=== PATIENT | female | born 1985 | race Caucasian/White ===

== ENCOUNTER 2023-05-02 21:38 | Inpatient (IN) | payer OTHER ==
[~2023-05-02] VITALS: Ht 160 cm; Wt 75.3 kg
[2023-05-02 22:06] VITALS: O2SAT 98
[2023-05-02 22:35] LABS: BASOPHILS % 0.7 % (0.0-2.0); HEMATOCRIT. 40.8 % (36.0-48.0); HEMOGLOBIN. 13.9 g/dL (12.0-16.0); LYMPHOCYTES % 28.8 % (20.0-50.0); MEAN CORPUSCULAR HEMOGLOBIN 27.5 pg (28.0-32.0); MEAN CORPUSCULAR VOLUME 80.9 fL (81.0-99.0); MEAN PLATELET VOLUME 9.5 fl (7.4-10.4); MONOCYTES % 5.3 % (2.0-8.0); NEUTROPHILS % 62.2 % (40.0-76.0); PLATELET 284 x1000/uL (130-400); RED BLOOD CELL COUNT 5.04 mill/uL (4.2-5.4); RED CELL DISTRIBUTION WIDTH 13.1 % (11.6-14.6)
[2023-05-02 22:43] LABS: CHLORIDE 106 mEq/L (98-107)
[2023-05-03] VITALS (13 sets, daily range): BP systolic 104–139; BP diastolic 63–91; PULSE 68–75; RESP 16–20; TEMP 98.1–98.9
[2023-05-03 01:50] LABS: CLARITY URINE TURBID (CLEAR); COLOR URINE RED (YELLOW); KETONES URINE NEGATIVE (NEGATIVE); LEUKOCYTE ESTERASE URINE 2+ (NEGATIVE); NITRITE URINE NEGATIVE (NEGATIVE); OCCULT BLOOD URINE 3+ (NEGATIVE); PROTEIN URINE 2+ (NEGATIVE); SPECIFIC GRAVITY URINE 1.021 (1.005-1.030); UROBILINOGEN URINE 0.2 E.U./dL (0.2-1.0)
[2023-05-03] MEDS ORDERED: CEFTRIAXONE 1GM PREMIX 50 ML IV ONE (07:30)
[2023-05-03] MEDS ORDERED: KETOROLAC 30MG/ML VIAL IV ONE (07:30)
[2023-05-03] MEDS ORDERED: KETOROLAC 30MG/ML VIAL IV NR (10:00)
[2023-05-03] MEDS: CEFTRIAXONE 1GM PREMIX 50 ML IV NR (10:08)
[2023-05-03 10:30] LABS: PROTHROMBIN TIME 10.9 sec (9.6-11.0)
[2023-05-03] MEDS ORDERED: IOHEXOL-300 50 ML BOTTLE IV ONE (11:09)
[2023-05-03] MEDS ORDERED: LIDOCAINE HCL 1% 10 MG/ML 10ML VIAL ONE (11:09)
[2023-05-03] MEDS ORDERED: FENTANYL CITRATE/PF 50MCG/ML 2ML VIAL ONE (11:42)
[2023-05-03] MEDS ORDERED: FENTANYL CITRATE/PF 50MCG/ML 2ML VIAL IV ONE (12:00)
[2023-05-03] MEDS ORDERED: DEXTROSE 50% WATER 50ML SYRINGE IV PRN (19:45)
[2023-05-03] MEDS ORDERED: ACETAMINOPHEN 325MG TABLET PO PRN (19:45)
[2023-05-03] MEDS ORDERED: CLONIDINE 0.1MG TABLET PO PRN (19:45)
[2023-05-03] MEDS ORDERED: POTASSIUM CHLORIDE 20MEQ TABLET SR PO NR (20:00)
[2023-05-03] MEDS ORDERED: ENOXAPARIN 40MG/0.4ML SYR SUBCUT SCH (20:00)
[2023-05-03] MEDS ORDERED: NALOXONE HCL 0.4MG/ML VIAL IV PRN (20:00)
[2023-05-03] MEDS: HYDROCODONE/ACETAMINOPHEN 5/325MG TABLET PO PRN (20:14)
[2023-05-03] MEDS: BLOOD SUGAR DIAGNOSTIC STRIP TEST SCH (20:16)
[2023-05-03] MEDS: INSULIN LISPRO 100 UNITS/ML SUBCUT SCH (20:16)
[2023-05-03] MEDS ORDERED: ACET-2708 PO (21:46)
[2023-05-04] VITALS: BP 98/54; PULSE 63; RESP 18; TEMP 98.2
[2023-05-04 04:00] VITALS: BP 101/62; PULSE 65; RESP 20; TEMP 97.8
[2023-05-04 06:31] LABS: HEMOGLOBIN 14.1 g/dL (12.0-16.0); MEAN CORPUSCULAR HEMOGLOBIN 28.2 pg (28.0-32.0); MEAN CORPUSCULAR VOLUME 81.9 fL (81.0-99.0); PLATELET 263 x1000/uL (130-400); RED CELL DISTRIBUTION WIDTH 13.2 % (11.6-14.6)
[2023-05-04 06:37] LABS: CHLORIDE 111 mEq/L (98-107)
[2023-05-04] MEDS: BLOOD SUGAR DIAGNOSTIC STRIP TEST SCH ×2 (06:39→12:10)
[2023-05-04 06:52] LABS: HDL CHOLESTEROL 39 mg/dL (40-59); LDL CHOLESTEROL 97 mg/dL (5-100)
[2023-05-04] MEDS ORDERED: CEFTRIAXONE 1,000 MG in DEXTROSE 5% WATER 50 ML IV SCH (07:00)
[2023-05-04] MEDS: INSULIN LISPRO 100 UNITS/ML SUBCUT SCH ×2 (07:40→12:56)
[2023-05-04 08:00] VITALS: BP 121/63; PULSE 76; RESP 20; TEMP 97.9
[2023-05-04] MEDS ORDERED: ENOXAPARIN 40MG/0.4ML SYR SUBCUT SCH (09:00)
[2023-05-04 10:21] VITALS: PULSE 71
[2023-05-04] MEDS: HYDROCODONE/ACETAMINOPHEN 5/325MG TABLET PO PRN (10:21)
[2023-05-04 12:00] VITALS: BP 111/75; RESP 20; TEMP 98
[2023-05-04] MEDS ORDERED: CIPR-263 MT (12:44)
[2023-05-04] MEDS ORDERED: METF-414 MT (14:57)
== END 2023-05-04 18:05 | disposition home or self-care (01) | DRG 463 ==
LOC: ER 21:38 → 8WST 05-03 09:15 → EDBEDREQ 05-03 09:17 → EDBEDREQSVC 05-03 09:17 → EDBEDREQTM 05-03 09:17
PROVIDERS: ADMIT Internal Medicine; ATTEND Internal Medicine
PROC: 0T9430Z Drainage of Left Kidney Pelvis with Drainage Device, Percutaneous Approach (ICD-10-PCS; principal; 2023-05-03)
DX: N13.6 Pyonephrosis (principal); E11.9 Type 2 diabetes mellitus without complications; N23 Unspecified renal colic; E78.00 Pure hypercholesterolemia, unspecified; I10 Essential (primary) hypertension; N20.0 Calculus of kidney; Z79.4 Long term (current) use of insulin
CPT/HCPCS: 36415; 50432; 74176; 80048; 80053; 80061; 81003; 82962; 83036; 85025; 85027; 99152; 99153; 99285; C1729; C1769; J0696; J1650; J1815; J1885; J3010; J3490; J7060; Q9967; G0500

== ENCOUNTER 2023-05-28 15:08 | Emergency (ER) | payer OTHER ==
[~2023-05-28] VITALS: Ht 162.6 cm; Wt 77.0 kg
[~2023-05-28 15:08] MED LIST: ACET-2708 PO; CIPR-263 MT; METF-414 MT
[2023-05-28 15:29] VITALS: O2SAT 100
[2023-05-28] MEDS ORDERED: ACETAMINOPHEN 325MG TABLET PO ONE (16:30)
[2023-05-28 16:51] LABS: BASOPHILS % 0.5 % (0.0-2.0); EOSINOPHILS % 3.6 % (0.0-5.0); HEMATOCRIT. 41.7 % (36.0-48.0); HEMOGLOBIN. 14.2 g/dL (12.0-16.0); LYMPHOCYTES % 27.7 % (20.0-50.0); MEAN CORPUSCULAR HEMOGLOBIN 27.5 pg (28.0-32.0); MEAN CORPUSCULAR HGB CONC 34.1 g/dL (31.0-37.0); MEAN CORPUSCULAR VOLUME 80.7 fL (81.0-99.0); MONOCYTES % 4.8 % (2.0-8.0); NEUTROPHILS % 63.4 % (40.0-76.0); PLATELET 269 x1000/uL (130-400); RED BLOOD CELL COUNT 5.16 mill/uL (4.2-5.4); WHITE BLOOD COUNT 11.8 x1000/uL (4.5-11.0)
[2023-05-28 16:56] LABS: CHLORIDE 107 mEq/L (98-107); INDEX HEMOLYSI 1 (1-3); INDEX ICTERIC 1 (1-4); INDEX LIPEMIC 1 (1-3); POTASSIUM 3.8 mEq/L (3.5-5.1); SODIUM 137 mEq/L (136-145)
[2023-05-28 16:58] LABS: HCG SCREEN NEGATIVE
[2023-05-28 17:06] LABS: ALANINE AMINOTRANSFERASE 36 IU/L (13-61); ASPARTATE AMINOTRANSFERASE 14 IU/L (15-37); BILIRUBIN TOTAL 0.3 mg/dL (0.1-1.0); CALCIUM 9.1 mg/dL (8.5-10.1); CARBON DIOXIDE 26 mEq/L (21-32); CREATININE 0.6 mg/dL (0.6-1.3); GLUCOSE 110 mg/dL (70-105); PROTEIN TOTAL 7.9 g/dL (6.0-8.3); UREA NITROGEN BLOOD 4 mg/dL (7-21)
[2023-05-28 17:23] LABS: CLARITY URINE TURBID (CLEAR); COLOR URINE YELLOW (YELLOW); GLUCOSE URINE NEGATIVE (NEGATIVE); KETONES URINE NEGATIVE (NEGATIVE); LEUKOCYTE ESTERASE URINE 3+ (NEGATIVE); NITRITE URINE POSITIVE (NEGATIVE); OCCULT BLOOD URINE 2+ (NEGATIVE); PROTEIN URINE 3+ (NEGATIVE); SPECIFIC GRAVITY URINE 1.012 (1.005-1.030); UROBILINOGEN URINE 0.2 E.U./dL (0.2-1.0)
[2023-05-28] MEDS ORDERED: PIPERACILLIN/TAZOBACTAM 3.375GM/50ML PREMIX IV ONE (17:45)
[2023-05-28] MEDS ORDERED: PIPERACILLIN/TAZ 3.375G PREMIX 50 ML IV NR (18:00)
[2023-05-28 18:18] LABS: BACTERIA URINE 3+; SQUAMOUS EPITHELIAL CELL URINE 1+ /lpf (RARE/1+)
[2023-05-28 18:21] LABS: WBC URINE 50-100 /hpf (0-2); YEAST URINE FEW
[2023-05-28 22:56] VITALS: BP 150/92; PULSE 84; RESP 20; TEMP 98.3
== END 2023-05-28 23:32 | disposition short-term general hospital (02) ==
LOC: ER 15:08 → CANBEDREQ 20:28 → ER 23:32
DX: M54.9 Dorsalgia, unspecified (principal); E11.9 Type 2 diabetes mellitus without complications; E78.00 Pure hypercholesterolemia, unspecified; I10 Essential (primary) hypertension; Z87.440 Personal history of urinary (tract) infections; Z98.890 Other specified postprocedural states
CPT/HCPCS: 80053; 81003; 84703; 83605; 83690; 85025; 87040; 87086; 87186; 87077; 36415; 74176; 96365; 99285; J2543; Z7610; C1893

== ENCOUNTER 2023-07-21 22:15 | Emergency (ER) | payer OTHER ==
[~2023-07-21] VITALS: Ht 165.1 cm; Wt 73.0 kg
[2023-07-21 23:29] VITALS: O2SAT 100
[2023-07-21 23:42] LABS: BASOPHILS % 0.8 % (0.0-2.0); DIFFERENTIAL COMMENT 0; EOSINOPHILS % 2.3 % (0.0-5.0); HEMATOCRIT. 40.4 % (36.0-48.0); HEMOGLOBIN. 13.6 g/dL (12.0-16.0); LYMPHOCYTES % 28.1 % (20.0-50.0); MEAN CORPUSCULAR HEMOGLOBIN 26.8 pg (28.0-32.0); MEAN CORPUSCULAR HGB CONC 33.7 g/dL (31.0-37.0); MEAN CORPUSCULAR VOLUME 79.5 fL (81.0-99.0); MEAN PLATELET VOLUME 9.9 fl (7.4-10.4); MONOCYTES % 4.6 % (2.0-8.0); NEUTROPHILS % 64.2 % (40.0-76.0); PLATELET 308 x1000/uL (130-400); RED BLOOD CELL COUNT 5.08 mill/uL (4.2-5.4); RED CELL DISTRIBUTION WIDTH 12.8 % (11.6-14.6); WHITE BLOOD COUNT 12.7 x1000/uL (4.5-11.0)
[2023-07-21 23:51] LABS: CHLORIDE 105 mEq/L (98-107); INDEX HEMOLYSI 2 (1-3); INDEX ICTERIC 1 (1-4); INDEX LIPEMIC 1 (1-3); POTASSIUM 3.6 mEq/L (3.5-5.1); SODIUM 135 mEq/L (136-145)
[2023-07-22 00:13] LABS: ALANINE AMINOTRANSFERASE 35 IU/L (13-61); ALBUMIN 3.6 g/dL (3.4-5.0); ASPARTATE AMINOTRANSFERASE 15 IU/L (15-37); BILIRUBIN TOTAL 0.2 mg/dL (0.1-1.0); CALCIUM 8.3 mg/dL (8.5-10.1); CARBON DIOXIDE 27 mEq/L (21-32); CREATININE 0.8 mg/dL (0.6-1.3); GLUCOSE 182 mg/dL (70-105); PROTEIN TOTAL 7.6 g/dL (6.0-8.3); UREA NITROGEN BLOOD 15 mg/dL (7-21)
[2023-07-22 01:14] LABS: CLARITY URINE CLOUDY (CLEAR); COLOR URINE YELLOW (YELLOW); GLUCOSE URINE 1+ (NEGATIVE); KETONES URINE NEGATIVE (NEGATIVE); LEUKOCYTE ESTERASE URINE 2+ (NEGATIVE); NITRITE URINE POSITIVE (NEGATIVE); OCCULT BLOOD URINE 2+ (NEGATIVE); PROTEIN URINE 2+ (NEGATIVE); SPECIFIC GRAVITY URINE 1.013 (1.005-1.030); UROBILINOGEN URINE 0.2 E.U./dL (0.2-1.0)
[2023-07-22] MEDS ORDERED: KETOROLAC 15MG/ML VIAL IV NR (01:45)
[2023-07-22] MEDS ORDERED: CEPHALEXIN 250MG CAPSULE PO NR (01:45)
[2023-07-22 01:46] LABS: RBC URINE 0-2 /hpf (0-2); SQUAMOUS EPITHELIAL CELL URINE FEW /lpf (RARE/1+)
[2023-07-22 01:47] LABS: BACTERIA URINE TRACE
[2023-07-22] MEDS ORDERED: CIPR250S3 MT (03:34)
[2023-07-22] MEDS ORDERED: IBUP-2029 MT (03:34)
[2023-07-22] MEDS ORDERED: NAPROXEN 250MG TABLET PO ONE (05:30)
[2023-07-22 05:43] VITALS: BP 130/87; PULSE 75; RESP 16; TEMP 98.2
== END 2023-07-22 05:58 | disposition home or self-care (01) ==
LOC: ER 22:15
DX: N39.0 Urinary tract infection, site not specified (principal); N20.0 Calculus of kidney; E11.9 Type 2 diabetes mellitus without complications; E78.00 Pure hypercholesterolemia, unspecified; I10 Essential (primary) hypertension; Z98.890 Other specified postprocedural states
CPT/HCPCS: 36415; 74176; 80053; 81003; 81025; 85025; 99284